=== PATIENT | female | born 1980 | race Caucasian/White ===

== ENCOUNTER → 2017-11-26 16:44 | Outpatient (CLI) | payer BC, SELFPAY ==
[2017-11-26 19:02] LABS: Chlamydia Trachomatis by PCR Negative (Negative); Neisserai gonorrhoeae by PCR Negative (Negative); Probe Check PASS; Sample Adequacy Control PASS; Specimen Processing Control PASS
[2017-11-30 08:27] LABS: HPV Reflexed? NOT INDICATED
== END ==
LOC: LABSPEC 16:46
PROVIDERS: Visit Provider Obstetrics & Gynecology
DX: Z12.4 Encounter for screening for malignant neoplasm of cervix (principal); Z11.3 Encounter for screening for infections with a predominantly sexual mode of transmission
CPT/HCPCS: 87491; 87591; 88175; G0145

== ENCOUNTER → 2017-12-31 15:22 | Outpatient (CLI) | payer BC, SELFPAY | LOC: LABSPEC 15:23 | PROVIDERS: Visit Provider Obstetrics & Gynecology | DX: N39.0 Urinary tract infection, site not specified (principal) | CPT/HCPCS: 87086; 87088; 87186 ==

== ENCOUNTER → 2019-03-20 17:56 | Outpatient (CLI) | payer BC, SELFPAY ==
[2019-03-25 16:07] LABS: Age Gdln ACOG Testing 30-65 (.)
[2019-03-26 11:37] LABS: HPV APTIMA, High Risk Negative (Negative)
[2019-03-26 11:40] LABS: HPV Reflexed? YES, CHARGE PATIENT
== END ==
PROVIDERS: Referring Provider Obstetrics & Gynecology; Visit Provider Obstetrics & Gynecology
DX: Z12.4 Encounter for screening for malignant neoplasm of cervix (principal)
CPT/HCPCS: 87624; 88175; G0145

== ENCOUNTER 2021-07-22 16:19 | Outpatient (CLI) | payer BC, SELFPAY ==
[2021-07-25 15:08] LABS: Chlamydia By Nucleic Acid AMP Negative (Negative)
[2021-07-25 20:52] LABS: Gonococcus By Nucleic Acid AMP Negative (Negative)
[2021-07-29 12:59] LABS: HPV APTIMA, High Risk Negative (Negative)
== END 2021-07-22 23:59 | disposition home or self-care (01) ==
LOC: LABSPEC 16:20
PROVIDERS: Visit Provider Student in an Organized Health Care Education/Training Program
DX: Z12.4 Encounter for screening for malignant neoplasm of cervix (principal); Z11.3 Encounter for screening for infections with a predominantly sexual mode of transmission
CPT/HCPCS: 87491; 87591; 87624; 88175; G0145

== ENCOUNTER 2021-08-05 10:13 | Outpatient (CLI) | payer BC, SELFPAY ==
--- NOTE | 2021-08-05 10:15 | BI_ITS ---
MAMMOGRAPHY - BILATERAL SCREENING REASON FOR EXAM: Female, 41 years old. Routine annual screening examination. PERTINENT HISTORY: Aunt with breast cancer. TECHNIQUE: Digital bilateral breast aliza (3D mammographic acquisition) in the CC and MLO projections. 2-D mediolateral oblique (MLO) and craniocaudad (CC) views of both breasts were obtained. CAD: Full Field Digital Mammography with Computer Added Detection was performed. COMPARISON: None. Baseline examination. FINDINGS: Breast Composition: The breasts are heterogeneously dense, which may obscure small masses. There are no dominant masses or suspicious calcifications. No other significant abnormalities are identified. BI/SCRN MAMM (CAD)W/ALIZA BILAT IMPRESSION: Negative screening mammogram. Yearly followup mammogram recommended. (A) ASSESSMENT CATEGORY: BIRADS Category 1: Negative. A letter regarding these results will be sent to the patient by the facility within 30 days. Approximately 10% of breast cancers are not detected by mammography. A normal mammogram should not delay biopsy of a clinically suspicious abnormality. [id number] Electronically Signed: Herman Earl MD at 11:16 EDT ,
== END 2021-08-05 23:59 | disposition home or self-care (01) ==
LOC: OPBI 10:14
PROVIDERS: Referring Provider Student in an Organized Health Care Education/Training Program; Visit Provider Student in an Organized Health Care Education/Training Program
DX: Z12.31 Encounter for screening mammogram for malignant neoplasm of breast (principal)
CPT/HCPCS: 77063; 77067

== ENCOUNTER → 2023-07-11 | Outpatient (CLI) | payer BC, SELFPAY ==
[2023-07-11 11:55] LABS: Absolute Lymphocyte Count 2.25 X10^3/uL (0.83-4.51); Absolute Neutrophil Count 4.6 X10^3/uL (2.0-7.7); Basophil# 0.04 X10^3/uL; Basophil% 0.5 % (0-1); Eosinophil# 0.23 X10^3/uL; Hematocrit 40.6 % (37-47); Hemoglobin 13.5 g/dL (12.0-15.0); Lymphocyte # 2.25 X10^3/ul (0.83-4.51); Lymphocyte % 29.8 % (19-41); Mean Corp Hgb Conc 33.3 g/dL (32-36); Mean Corpuscular Hgb 29.5 pg (27.0-32.0); Mean Corpuscular Volume 88.8 fL (81-99); Mean Platelet Vol. 9.6 fl (6.2-12.0); Monocyte# 0.42 X10^3/uL; Monocyte% 5.6 % (0-10); NRBC Flagged by Analyzer 0 % (0-5); Neutrophil # 4.57 X10^3/uL (2.7-7.7); Neutrophil % 60.6 % (47-70); Platelet Count 354 K/mm3 (150-450); RBC Distribution Width CV 12.7 % (11.6-14.6); RBC Distribution Width SD 41.4 fl (35.1-43.9); Red Blood Count 4.57 M/mm3 (4.2-5.4); White Blood Count 7.6 K/mm3 (4.4-11.0)
[2023-07-11 12:17] LABS: Vitamin D,25 Hydroxy 24.5 ng/mL
[2023-07-11 12:40] LABS: ALB/GLOB Ratio 0.9 RATIO (0.9-2.4); AST(SGOT) 12 U/L (15-37); Alanine Aminotransfer ALT/SGPT 24 U/L (13-56); Albumin, Serum 3.6 g/dL (3.2-5.0); Alkaline Phosphatase 85 U/L (45-117); Anion Gap 4 (5-15); BUN 9 mg/dL (7-18); BUN/Creat Ratio 13.1 RATIO (10-20); Calcium,Total 8.6 mg/dL (8.5-10.1); Chloride 109 mmol/L (98-107); Cholesterol 194 mg/dL (200); Creatinine, Serum 0.69 mg/dL (0.55-1.02); EST Glomerular Filtration Rate 100 mL/min (>60); Est Glom Filt Rate - Afr Amer 121 mL/min (>60); Globulin 3.9 g/dL (2.2-4.2); Glucose 90 mg/dL (74-106); High Density Lipoprotein 54 mg/dL; Potassium 4.1 mmol/L (3.5-5.1); Protein, Total 7.5 g/dL (6.4-8.2); Sodium Level 139 mmol/L (136-145); Triglycerides 80 mg/dL; Very Low Density Lipoprotein 16 mg/dL (5-40)
--- OUTSIDE RECORDS SUMMARY | 2023-07-11 17:36 | XMS RPT_ITS | CCD ---
Author Name Unknown Address [address] [place] [address] Organization [facility] Care Team Providers Care Graduate Rn Name Role Phone Vida Quiroz MD Primary Care Provider [facility] Referring Unavailable VIDA QUIROZ Primary Care Unavailable VIDA QUIROZ Primary Care Unavailable VIDA QUIROZ Referring Unavailable VIDA QUIROZ Primary Care Unavailable Medications Completed/Discontinued Medications Medication Drug Class(es) Dates Sig (Normalized) Sig (Original) 21 day ethinyl estradiol 0.516330 mg/hr / etonogestrel 0.005 mg/hr vaginal system (4 sources) Progestin, Estrogen Start: 11-15-2010 Etonogestrel-Ethin yl Estradiol (NUVARING) 0.12-0.015 mg/24 hr VAGINAL vaginal ring Use vaginally As Directed. INSERT ONE(1) RING VAGINALLY AND LEAVE IN PLACE FOR THREE WEEKS, THEN REMOVE FOR 1 WEEK. 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, recurrent severe without psychotic features] Onset: 08-20-2013 08-20-2013 Chronic Other screening for suspected conditions (not mental disorders or infectious disease) (5 sources) Inconclusive mammography finding; Translations: [Inconclusive mammogram] Onset: 08-30-2022 Episodic Residual codes; unclassified (4 sources) Insomnia co-occurrent and due to medical condition; Translations: [Insomnia due to medical condition] Onset: 08-20-2013 08-20-2013 Chronic Past or Other Problems Problem Classification Problem Date Documented Da te Episodic/Chronic Other hematologic conditions (4 sources) History of immune thrombocytopenia; Translations: [Personal history of diseases of the blood and blood-forming organs and certain disorders involving the immune mechanism] Onset: 08-10-2016 08-10-2016 Episodic Spondylosis; intervertebral disc disorders; other back problems (4 sources) Low back pain; Translations: [Lumbago] Onset: 08-21-2011 08-21-2011 Episodic Results Test Name Value Interpretation Reference Range Facil ity Encounters Encounter Date Encounter Type Care Provider Facility Start: 10-24-2022 End: 10-24-2022 ambulatory VIDA QUIROZ Facility:[facility] Start: 10-24-2022 End: 10-24-2022 Subsequent hospital visit by physician [facility] Work Phone: Radiology Procedures Date Procedure Procedure Detail Performing Clinician Start: 08-30-2022 End: 08-30-2022 Mammography Bulk Order Provider Plan of Treatment Date Care Activity Detail Author Start: 10-25-2023 Mammography Mammogram Screening [facility] Start: 08-31-2023 Mammography MAMMOGRAM [facility] Start: 01-12-2023 Influenza vaccination [facility] Start: 08-27-2015 PAP TESTING PAP TESTING [facility] Start: 07-30-2011 HPV TESTING HPV TESTING [facility] Start: 2000 Urine microalbumin profile [facility] Start: 01-29-1982 COVID-19 VACCINE (#1) COVID-19 VACCINE (#1) [facility] Start: 1981 HEPATITIS B (1 of 3 - 3-dose series) HEPATITIS B (1 of 3 - 3-dose series) [facility] Start: 1981 Hepatitis B Vaccine (1 of 3 - 3-dose series) Hepatitis B Vaccine (1 of 3 - 3-dose series) [facility] End: 09-30-2023 RITESH DIAGNOSTIC BILATERAL RITESH DIAGNOSTIC BILATERAL Radiology Routine Inconclusive mammogram 1 Occurrences starting 08/31/2022 until 09/30/2023 [facility] Work Phone: Immunizations Immunization Date Immunization Notes Care Provider Michael bell 06-20-2016 influenza virus vacc ine, unspecified formulation [facility] Work Phone: [facility] Payers Date Payer Category Payer Unknown [employer] C[employer] PPO OOS [id number] 2010-Present [phone] [address] [place] [address] PPO [id number] 2010 Unknown [id number] Social History Date Type Detail Facility Start: 03-16-2011 [facility] Work Phone: End: 02-23-2011 History of tobacco use Current smoker [facility] Work Phone: End: 02-23-2011 History of tobacco use Cigarette Smoker [facility] Work Phone: Start: 03-16-2011 End: 04-20-2020 Cigarettes smoked current (pack per day) - Reported 0.5 [facility] Start: 03-16-2011 Tobacco use and exposure Smokeless tobacco non-user [facility] Work Phone: Start: 12-28-2021 Alcohol intake Current drinke r of alcohol (finding) [facility] Start: 06-10-2013 [facility] Start: 1980 Sex Assigned At Not on file [facility] Start: 04-20-2020 End: 12-28-2021 Tobacco use panel [facility] PHQ2 Score 0 [facility] Clinical Notes 08-20-2013 to 10-24-2022 Telephone Encounter - Kavya Pierre RN - 09/01/2022 3:16 PM EDTTelephone Encounter - Kavya Pierre RN - 08/31/2022 4:26 PM EDTLetter - Mammography Coordinator - 08/31/2022 4:16 PM EDT Note Date & Type Note Facility 10-24-2022 Note HNO ID: [id number] Author: Simona Schumacher RT(R) Service: ? Author Type: Rn Oncology Clinical Type: Progress Notes Filed: 10/24/2022 3:19 PM Note Text: Radiology Service Progress Note PATIENT NAME: Dave Munoz DATE OF SERVICE: October 24, 2022 TIME: 3:19 PM PATIENT IDENTITY VERIFICATION COMPLETED USING TWO (2) IDENTIFIERS: Name and Date of confirmed by patient verbally. FALL SCREENING: Has the patient had 2 falls in the last year or 1 fall with injury or currently using an Ambulatory Assistive Device (Walker, Cane, Wheelchair, Crutches, etc.)? No PATIENT GENDER DATA: Female. status: : No status: NO. PATIENT RELEVANT IMPLANT DATA REVIEWED: Not Applicable RADIOLOGY DEPARTMENT: Mammography PERIPHERAL IV DATA: Not applicable SIGNED BY: RT Jessica(R) October 24, 2022 3:19 PM [facility] 09-01-2022 Miscellaneous Notes Formattin g of this note might be different from the original. Message to patient, agreed. VM full Let patient know that her mammogram was inconclusive and additional images are recommended by the radiologist. Orders placed, assist with scheduling. Curtis Mack APRN.CORINNE documented in this encounter [facility] 08-31-2022 Miscellaneous Notes Formattin g of this note might be different from the original. September 01, 2022 PID: [id number] Dave Munoz [address] [place] [address] Dear Ms. Munoz, Your recent breast imaging exam on 08/30/2022 showed a possible finding that requires additional imaging studies for a complete evaluation. Most such findings are probably benign (not cancer). If you have a healthcare provider who ordered/prescribed your screening mammogram: Please call [phone] or [phone]: [phone] to schedule an appointment for your additional imaging (if you have not already done so). If you DO NOT have a healthcare provider (ie you did not have an order/prescription for your screening mammogram): Please call to schedule an appointment for your additional imaging (if you have not already done so). You must have an order/prescription from your physician when calling to schedule your appointment. If your order/prescription is not electronic, you must bring the hard copy with you on the day of your exam to avoid delays. Your imaging studies and reports are kept on file at [facility] as part of your permanent medical record, and are available for your continuing care. Thank you for allowing us to help in meeting your health care needs. Sincerely, Dr. Zimmerman Interpreting Radiologist [facility] (Additional imaging) documented in this encounter [facility] 08-30-2022 Note HNO ID: [id number] Author: RT Amy(Nathan) Service: ? Author Type: Technologist Type: Progress Notes Filed: 08/30/2022 2:56 PM Note Text: Radiology Service Progress Note PATIENT NAME: Dave Munoz DATE OF SERVICE: August 30, 2022 TIME: 2:55 PM PATIENT IDENTITY VERIFICATION COMPLETED USING TWO (2) IDENTIFIERS: Name and Date of confirmed by patient verbally. FALL SCREENING: Has the patient had 2 falls in the last year or 1 fall with injury or currently using an Ambulatory Assistive Device (Walker, Cane, Wheelchair, Crutches, etc.)? No PATIENT GENDER DATA: Female. status: : No status: NO. PATIENT RELEVANT IMPLANT DATA REVIEWED: Not Applicable RADIOLOGY DEPARTMENT: Mammography PERIPHERAL IV DATA: Not applicable SIGNED BY: RT Amy(R) August 30, 2022 2:55 PM [facility] 08-30-2022 History of Presen t illness Narrative Radiology Service Progress Note PATIENT NAME: Dave Munoz DATE OF SERVICE: August 30, 2022 TIME: 2:55 PM PATIENT IDENTITY VERIFICATION COMPLETED USING TWO (2) IDENTIFIERS: Name and Date of confirmed by patient verbally. FALL SCREENING: Has the patient had 2 falls in the last year or 1 fall with injury or currently using an Ambulatory Assistive Device (Walker, Cane, Wheelchair, Crutches, etc.)? No PATIENT GENDER DATA: Female. status: : No status: NO. PATIENT RELEVANT IMPLANT DATA REVIEWED: Not Applicable RADIOLOGY DEPARTMENT: Mammography PERIPHERAL IV DATA: Not applicable SIGNED BY: RT Amy(R) August 30, 2022 2:55 PM documented in this encounter [facility] documented as of this encounter (statuses as of 09/01/2022) [facility]04-09-2014 History of Past illness Narrative* Problem Noted Date Resolved Date RLS (restless legs syndrome) 08/20/2013 Thrombocytopenia 09/02/2012 07/31/2014 documented as of this encounter (statuses as of 09/02/2022) [facility]-09-2014 History of Past illness Narrative* Problem Noted Date Diagnosed Date Resolved Date RLS (restless legs syndrome) 08/20/2013 09/10/2013 Thrombocytopenia 09/02/2012 07/31/2014 documented as of this encounter (statuses as of 03/18/2023) [facility]2014 History of Past illness Narrative* Problem Noted Date Diagnosed Date Resolved Date RLS (restless legs syndrome) 08/20/2013 09/10/2013 Thrombocytopenia 09/02/2012 07/31/2014 documented as of this encounter (statuses as of 03/18/2023) [facility]* Diagnosis Inconclusive mammogram- [facility] Diagnosis Inconclusive mammogram [facility]* Diagnosis Encounter for screening mammogram for breast cancer documented in this encounter [facility] for referral (narrative)* Diagnostic Procedure Only (Routine) - Pending Review Specialty Diagnoses / Procedures Referred By Tao guzman Referred To Contact [facility] Diagnoses Inconclusive mammogram Procedures US BREAST LTD LEFT US BREAST UNI REAL TIME WITH IMAGE LIMITED Curtis Mack APRN.TABLE TOP TILE SETTER [address] [place] [address] [facility] [address] [place] [address] Referral ID Status Reason Start Date Expiration Date Visits Requested Visits Authorized [id number] Pending Review Auto-Generat ed Referral 08/31/2022 09/30/2023 1 1 * Diagnostic Procedure Only (Routine) - Pending Review Specialty Diagnoses / Procedures Referred By Tao guzman Referred To Contact [facility] Diagnoses Inconclusive mammogram Procedures US BREAST LTD RIGHT US BREAST UNI REAL TIME WITH IMAGE LIMITED Curtis Mack APRN.CNP [address] [place] [address] [facility] [address] [place] [address] Referral ID Status Reason Start Date Expiration Date Visits Requested Visits Authorized [id number] Pending Review Auto-Generat ed Referral 08/31/2022 09/30/2023 1 1 * Diagnostic Procedure Only (Routine) - Pending Review Specialty Diagnoses / Procedures Referred By Tao guzman Referred To Contact [facility] Diagnoses Inconclusive mammogram Procedures RITESH DIAGNOSTIC BILATERAL DIAGNOSTIC MAMMOGRAPHY COMPUTER-AIDED DETCJ BI Curtis Mack APRN.TABLE TOP TILE SETTER [address] [place] [address] [facility] [address] [place] [address] Referral ID Status Reason Start Date Expiration Date Visits Requested Visits Authorized [id number] Pending Review Auto-Generat ed Referral 08/31/2022 09/30/2023 1 1 [facility] for referral (narrative)* Diagnostic Procedure Only (Routine) - Closed Specialty Diagnoses / Procedures Referred By Tao guzman Referred To Contact [facility] Diagnoses Encounter for screening mammogram for breast cancer Procedures RITESH SCREENING SCREENING MAMMOGRAPHY BI 2-VIEW BREAST INC Vida Regan MD [address] [place] [address] [place] [address] [facility] [address] [place] [address] Referral ID Status Reason Start Date Expiration Date V isits Requested Visits Authorized [id number] Closed Auto-Generate d Referral 08/31/2021 09/30/2022 1 1 [facility] for visit Narrative* Diagnostic Procedure Only (Routine) - Authorized Specialty Diagnoses / Procedures Referred By Contac t Referred To Contact [facility] Diagnoses Inconclusive mammogram Procedures US BREAST LTD LEFT US BREAST UNI REAL TIME WITH IMAGE LIMITED Justina, Curtis, RENETTA.TABLE TOP TILE SETTER [address] [place] [address] [facility] [address] [place] [address] Referral ID Status Reason Start Date Expiration Date Visits Requested Visits Authorized [id number] Authorized Auto-Generat ed Referral 08/31/2022 09/30/2023 1 1 [facility] for visit Narrative* Diagnostic Procedure Only (Routine) - Closed Specialty Diagnoses / Procedures Referred By Tao guzman Referred To Contact [facility] Diagnoses Encounter for screening mammogram for breast cancer Procedures RITESH SCREENING SCREENING MAMMOGRAPHY BI 2-VIEW BREAST INC CAD Vida Quiroz MD [address] [facility] [place] [address] [facility] [address] [place] [address] Referral ID Status Reason Start Date Expiration Date V isits Requested Visits Authorized [id number] Closed Auto-Generate d Referral 08/31/2021 09/30/2022 1 1 [facility] Summary Purpose Family History No Family History Records Found Advance Directives No Advanced Directives Records Found Additional Source Comments Source Comments (unrecognize d section and content) In the event this informatio n is protected by the Federal Confidentiality of Alcohol and Drug Abuse Patient Records regulations: The Federal rules restrict any use of the information to criminally investigate or prosecute any alcohol or drug abuse patient.[facility] the event this information is protected by the Federal Confidentiality of Alcohol and Drug Abuse Patient Records regulations: The Federal rules restrict any use of the information to criminally investigate or prosecute any alcohol or drug abuse patient.[facility] the event this information is protected by the Federal Confidentiality of Alcohol and Drug Abuse Patient Records regulations: The Federal rules restrict any use of the information to criminally investigate or prosecute any alcohol or drug abuse patient.[facility] the event this information is protected by the Federal Confidentiality of Alcohol and Drug Abuse Patient Records regulations: The Federal rules restrict any use of the information to criminally investigate or prosecute any alcohol or drug abuse patient.[facility] Reason for Visit (unrecogniz ed section and content) Care Teams (unrecognized sec tion and content) Graduate Rn Relationship Specialty Start Date End Date Vida Quiroz MD [address] [place], [place] [id number] PCP - General Family Medicine 07/12/15 Graduate Rn Relationship Specialty Start Date End Date Vida Quiroz MD [address] [place], [place] [id number] PCP - General Family Medicine 07/12/15 Graduate Rn Relationship Specialty Start Date End Date Vida Quiroz MD [address] [place] [address] PCP - General Family Medicine 07/12/15 INFORMATION SOURCE (unrecogn ized section and content) FOR RECORDS PERTAINING TO PATIENTS WHO ARE OR HAVE BEEN ENROLLED IN A CHEMICAL DEPENDENCY/SUBSTANCEABUSE PROGRAM, SOME INFORMATION MAY BE OMITTED. This clinical summary was aggregated from multiple sources. Caution should be exercised in using it in the provision of clinical care. This summary normalizes information from multiple sources, and as a consequence, information in this document may materially change the coding, format and clinical context of patient data. In addition, data may be omitted in some cases. CLINICAL DECISIONS SHOULD BE BASED ON THE PRIMARY CLINICAL RECORDS. [employer] provides no warranty or guarantee of the accuracy or completeness of information in this document.
== END | disposition home or self-care (01) ==
LOC: BFHLAB 09:44
PROVIDERS: PCP Nurse Practitioner Family; Visit Provider Nurse Practitioner Family
DX: Z00.01 Encounter for general adult medical examination with abnormal findings (principal); E55.9 Vitamin D deficiency, unspecified
CPT/HCPCS: 36415; 80053; 80061; 82306; 85025

== ENCOUNTER → 2023-09-05 | Outpatient (CLI) | payer BC, SELFPAY ==
--- NOTE | 2023-09-05 07:14 | BI_ITS ---
MAMMOGRAPHY - BILATERAL SCREENING REASON FOR EXAM: Female, 43 years old. Routine annual screening examination. PERTINENT HISTORY: Aunt with breast cancer. TECHNIQUE: Digital bilateral breast aliza (3D mammographic acquisition) in the CC and MLO projections. 2-D mediolateral oblique (MLO) and craniocaudad (CC) views of both breasts were obtained. CAD: Full Field Digital Mammography with Computer Added Detection was performed. COMPARISON: Comparison is made with prior outside examination dated August 30, 2022 and August 05, 2021. FINDINGS: Breast Composition: The breasts are heterogeneously dense, which may obscure small masses. There are no dominant masses or suspicious calcifications. Stable small benign-appearing bilateral axillary lymph nodes. No other significant abnormalities are identified. There has been no significant change since the prior study. BI/SCRN MAMM (CAD)W/ALIZA BILAT IMPRESSION: Stable bilateral screening mammogram. Yearly follow-up mammogram recommended. (A) ASSESSMENT CATEGORY: BIRADS Category 2: Benign. A letter regarding these results will be sent to the patient by the facility within 30 days. Approximately 10% of breast cancers are not detected by mammography. A normal mammogram should not delay biopsy of a clinically suspicious abnormality. [id number] Electronically Signed: Herman Earl MD at 8:54 EDT ,
== END | disposition home or self-care (01) ==
LOC: OPBI 07:14
PROVIDERS: PCP Nurse Practitioner Family; Referring Provider Registered Nurse; Visit Provider Registered Nurse
DX: Z12.31 Encounter for screening mammogram for malignant neoplasm of breast (principal); Z80.3 Family history of malignant neoplasm of breast
CPT/HCPCS: 77063; 77067

== ENCOUNTER → 2024-10-08 | Outpatient (CLI) | payer BC, SELFPAY ==
--- NOTE | 2024-10-08 15:31 | BI_ITS ---
EXAM: SCRN MAMM (CAD)W/ALIZA BILAT DATE: 10/08/2024 CLINICAL HISTORY: F, Age 44 y/o , SCREENING BREAST CANCER RISK ASSESSMENT: Na TECHNIQUE: Bilateral screening digital breast tomosynthesis with 2D and 3D images. Computer aided detection. COMPARISON: Prior exam(s) were compared FINDINGS: TISSUE DENSITY: The breast tissue is heterogenously dense, which may obscure small masses. Bilateral Breast Mammographic Findings: Left: There are calcifications in the upper inner left breast Right: no suspicious masses, calcifications or other abnormalities are identified. BI/SCRN MAMM (CAD)W/ALIZA BILAT IMPRESSION: OVERALL FINAL ASSESSMENT: BIRADS 0 Incomplete: Need additional imaging evaluati on. RECOMMENDATION: Incomplete: Need additional imaging evaluation with diagnostic left breast mamm ogram. A letter with findings and recommendations will be mailed to the patient. Reading Location: [id number]
== END | disposition home or self-care (01) ==
LOC: OPBI 15:29
PROVIDERS: PCP Nurse Practitioner Family; Referring Provider Nurse Practitioner Women's Health; Visit Provider Nurse Practitioner Women's Health
DX: Z12.31 Encounter for screening mammogram for malignant neoplasm of breast (principal)
CPT/HCPCS: 77063; 77067

== ENCOUNTER → 2024-10-15 | Outpatient (CLI) | payer BC, SELFPAY ==
--- NOTE | 2024-10-15 12:54 | BI_ITS ---
EXAM: DIAG MAMM W/CAD, UNILAT 10/15/2024 CLINICAL HISTORY: 44-year-old female presents for left breast finding on examination of 09/30/2024. Family history of breast cancer in a paternal aunt. TECHNIQUE: Left diagnostic digital breast tomosynthesis with 2D and 3D images. Computer aided detection. COMPARISON: Prior exam(s) dated 10/08/2024, 09/05/2023, 08/05/2021. FINDINGS: TISSUE DENSITY: The breast tissue is heterogenously dense, which may obscure small masses. Left breast: Follow-up examination performed for the calcifications in the upper inner left breast on examination of 10/05/2024. On the present examination, the previously visualized calcifications in the upper inner left breast are not seen on today's examination. This may have been an artifact or milk of calcium. Otherwise, there are no suspicious findings in the left breast. BI/DIAG MAMM W/CAD, UNILAT IMPRESSION: There is no evidence of malignancy in the left breast. OVERALL FINAL ASSESSMENT: BIRADS 1 NEGATIVE. RECOMMENDATION: Routine annual follow-up in 1 Year A letter with findings and recommendations will be mailed to the patient. Reading Location: [id number]
== END | disposition home or self-care (01) ==
PROVIDERS: PCP Nurse Practitioner Family; Referring Provider Nurse Practitioner Women's Health; Visit Provider Nurse Practitioner Women's Health
DX: R92.1 Mammographic calcification found on diagnostic imaging of breast (principal); Z80.3 Family history of malignant neoplasm of breast
CPT/HCPCS: 77065